=== PATIENT | male | born 1970 | race Caucasian/White ===

== ENCOUNTER 2016-08-16 10:26 | Observation (INO) | payer OTHER ==
[~2016-08-16] VITALS: Ht 165.1 cm; Wt 81.8 kg
[2016-08-16 11:19] VITALS: BP 143/89; PULSE 58
[2016-08-16] MEDS ORDERED: FLEXERIL 1010 MG/TAB PO (11:21)
[2016-08-16] MEDS ORDERED: DEPO-TESTOS200 MG/M1 IM (11:21)
[2016-08-16] MEDS ORDERED: PRINZIDE 25 MG-1 TAB PO (11:22)
[2016-08-16] MEDS ORDERED: LOPRESSOR100 MG PO (11:23)
[2016-08-16] MEDS ORDERED: NITROSTAT0.4 MG/TAB SL (11:24)
[2016-08-16] MEDS ORDERED: PERCOCET 325 MG1 TA2 PO (11:31)
[2016-08-16] MEDS ORDERED: BRINTELLIX10 PO (11:49)
[2016-08-16 12:40] LABS: HEMOGLOBIN 16.6 g/dl (13.5-18.0); MEAN CELL VOLUME 89 fl (80.0-100.0); MEAN CORPUSCULAR HEMOGLOBIN 28 pg (27.0-31.0); MEAN CORPUSCULAR HGB CONC 32 g/dl (33.0-37.0); MEAN PLATELET VOLUME 10.2 fl (7.4-10.4); PLATELET COUNT 270 K/mm3 (130-400); RED BLOOD COUNT 5.88 M/mm3 (4.20-5.60); REDCELL DISTRIBUTION WIDTH-CV 14.8 % (11.5-14.5); WHITE BLOOD COUNT 10.3 K/mm3 (4.8-10.8)
[2016-08-16 12:44] LABS: HEMATOCRIT 52.1 % (42.0-52.0)
[2016-08-16 12:45] LABS: PROTHROMBIN TIME 11.2 SECONDS (9.7-12.8)
[2016-08-16 12:47] LABS: PARTIAL THROMBOPLASTIN TIME 33.7 SECONDS (26.0-37.0)
[2016-08-16 12:55] LABS: CALCIUM 9.4 mg/dL (8.4-10.2); CREATININE, serum 0.91 mg/dL (0.66-1.25); POTASSIUM 4.2 mmol/L (3.4-5.0)
[2016-08-16 13:57] VITALS: BP 123/81; PULSE 54; TEMP 97.9
[2016-08-16 17:56] VITALS: BP 136/72; PULSE 52; TEMP 98.2
[2016-08-16 21:38] VITALS: BP 124/65; PULSE 53; TEMP 97.5
[2016-08-17] VITALS (537 sets, daily range): BP systolic 100–152; BP diastolic 64–95; PULSE 48–81; TEMP 97.2–98.5; O2SAT 85–100
[2016-08-18] VITALS (413 sets, daily range): BP systolic 100–148; BP diastolic 64–89; PULSE 50–65; TEMP 97.5; O2SAT 34–100
[2016-08-18 07:42] LABS: HEMOGLOBIN 17.2 g/dl (13.5-18.0); MEAN CELL VOLUME 88 fl (80.0-100.0); MEAN CORPUSCULAR HEMOGLOBIN 28 pg (27.0-31.0); MEAN CORPUSCULAR HGB CONC 32 g/dl (33.0-37.0); MEAN PLATELET VOLUME 9.8 fl (7.4-10.4); PLATELET COUNT 280 K/mm3 (130-400); RED BLOOD COUNT 6.05 M/mm3 (4.20-5.60); REDCELL DISTRIBUTION WIDTH-CV 14.8 % (11.5-14.5); WHITE BLOOD COUNT 14.3 K/mm3 (4.8-10.8)
[2016-08-18 07:47] LABS: CALCIUM 9.4 mg/dL (8.4-10.2); CREATININE, serum 0.98 mg/dL (0.66-1.25); POTASSIUM 4.4 mmol/L (3.4-5.0)
[2016-08-18 07:55] LABS: HEMATOCRIT 53.1 % (42.0-52.0)
== END 2016-08-18 13:25 | disposition home or self-care (01) ==
LOC: SURG 10:26 → SDCO 10:26 → SURG 10:27 → SDCO 10:27 → IMCU 08-17 12:26
PROVIDERS: Internal Medicine Interventional Cardiology
DX: I25.110 Atherosclerotic heart disease of native coronary artery with unstable angina pectoris (principal); F17.210 Nicotine dependence, cigarettes, uncomplicated
CPT/HCPCS: C1725; C1760; C1769; C1874; C1887; C9600; G0378; G0379; J0583; J2250; J3010; Q9967

== ENCOUNTER 2018-03-20 08:29 | Day surgery (SDC) | payer OTHER ==
[2018-03-20] VITALS (9 sets, daily range): BP systolic 136–184; BP diastolic 76–112; PULSE 55–76; TEMP 97.6
[~2018-03-20] VITALS: Ht 165.2 cm; Wt 79.0 kg
[~2018-03-20 08:29] MED LIST: ASPIRIN E.C. 8181 MG PO; BRINTELLIX10 PO; BRINTELLIX20 PO; COREG 6.256.25 MG/TA PO; CRESTOR40 MG PO; DEPAKOTE ER 50500 MG PO; DEPO-TESTOS200 MG/M1 IM; ELIQUIS 5MG PO; FLEXERIL 1010 MG/TAB PO; GEODON60 MG PO; LOPRESSOR100 MG PO; NICODERM C14 MG/PATC TD; NITROSTAT0.4 MG/TAB SL; PERCOCET 325 MG1 TA2 PO; PLAVIX 75MG TAB75 MG PO; PREDNISONE20 MG PO; PRINZIDE 25 MG-1 TAB PO; PROTONIX 40MG T40 MG PO; REMERON 15M15 MG/TA1 PO; TUSS PO
[2018-03-20 09:10] LABS: HEMATOCRIT 47.3 % (42.0-52.0); MEAN CELL VOLUME 90 fl (80.0-100.0); MEAN CORPUSCULAR HEMOGLOBIN 29 pg (27.0-31.0); MEAN CORPUSCULAR HGB CONC 32 g/dl (33.0-37.0); MEAN PLATELET VOLUME 9.6 fl (7.4-10.4); PLATELET COUNT 299 K/mm3 (130-400); RED BLOOD COUNT 5.26 M/mm3 (4.20-5.60); REDCELL DISTRIBUTION WIDTH-CV 15.8 % (11.5-14.5)
[2018-03-20] MEDS ORDERED: HCTZ 25MG TAB25 MG PO (09:18)
[2018-03-20] MEDS ORDERED: OXY IR5 MG PO (09:19)
[2018-03-20] MEDS ORDERED: XANAX 0.5MG0.5 MG PO (09:21)
[2018-03-20] MEDS ORDERED: CRESTOR40 MG PO (09:22)
[2018-03-20 09:23] LABS: CALCIUM 9.1 mg/dL (8.4-10.2); CREATININE, serum 0.7 mg/dL (0.66-1.25); POTASSIUM 4.2 mmol/L (3.4-5.0)
[2018-03-20 09:25] LABS: PROTHROMBIN TIME 11.2 SECONDS (9.7-12.8)
== END 2018-03-20 16:53 | disposition home or self-care (01) ==
LOC: COL.CAR 08:29
PROVIDERS: Internal Medicine Cardiovascular Disease
DX: I25.118 Atherosclerotic heart disease of native coronary artery with other forms of angina pectoris (principal); I10 Essential (primary) hypertension; E78.5 Hyperlipidemia, unspecified; F17.210 Nicotine dependence, cigarettes, uncomplicated; Z95.5 Presence of coronary angioplasty implant and graft; Z79.82 Long term (current) use of aspirin; Z79.01 Long term (current) use of anticoagulants; Z79.02 Long term (current) use of antithrombotics/antiplatelets; Z88.6 Allergy status to analgesic agent; Z86.718 Personal history of other venous thrombosis and embolism; Z82.3 Family history of stroke; Z82.49 Family history of ischemic heart disease and other diseases of the circulatory system
CPT/HCPCS: C1725; C1769; C1887; J0360; J1644; J2250; Q9967

== ENCOUNTER 2019-11-03 10:09 | Day surgery (SDC) | payer BC ==
[~2019-11-03] VITALS: Ht 165.4 cm; Wt 78.8 kg
[2019-11-03] VITALS (9 sets, daily range): BP systolic 128–152; BP diastolic 76–92; PULSE 52–61; TEMP 98
[~2019-11-03 10:09] MED LIST changes: +HCTZ 25MG TAB25 MG PO; -LOPRESSOR100 MG PO; +OXY IR5 MG PO; +TOPROL XL200 MG PO; +XANAX 0.5MG0.5 MG PO
[2019-11-03 11:23] LABS: HEMATOCRIT 50.2 % (42.0-52.0); HEMOGLOBIN 16.1 g/dl (13.5-18.0); MEAN CELL VOLUME 91 fl (80.0-100.0); MEAN CORPUSCULAR HEMOGLOBIN 29 pg (27.0-31.0); MEAN CORPUSCULAR HGB CONC 32 g/dl (33.0-37.0); MEAN PLATELET VOLUME 10.2 fl (7.4-10.4); PLATELET COUNT 270 K/mm3 (130-400); PROTHROMBIN TIME 11.5 SECONDS (9.7-12.8); RED BLOOD COUNT 5.53 M/mm3 (4.20-5.60); REDCELL DISTRIBUTION WIDTH-CV 15.8 % (11.5-14.5)
[2019-11-03 11:26] LABS: PARTIAL THROMBOPLASTIN TIME 31.8 SECONDS (26.0-37.0)
[2019-11-03] MEDS ORDERED: PERCOCET 325 MG1 TA2 PO (11:26)
[2019-11-03] MEDS ORDERED: ISOSORBIDE MON120 MG PO (11:27)
[2019-11-03] MEDS ORDERED: PRINIVIL20 MG PO (11:27)
[2019-11-03] MEDS ORDERED: BRINTELLIX10 PO (11:28)
[2019-11-03] MEDS ORDERED: PROAIR HFA0.09 MG/AC IH (11:29)
[2019-11-03] MEDS ORDERED: NICODERM C21 MG/PATC TD (11:29)
[2019-11-03] MEDS ORDERED: NORVASC 5MG5 MG/TAB PO (11:29)
[2019-11-03 11:30] LABS: CALCIUM 9.4 mg/dL (8.4-10.2); CREATININE, serum 0.79 (0.66-1.25); POTASSIUM 4.6 mmol/L (3.4-5.0)
--- NOTE | 2019-11-03 12:16 | NUR ---
SEE MERECHRIS FOR ALL MEDICATION ADMIN TIMES AND INTRA/POST SEDATION ASSESSMENT
--- NOTE | 2019-11-03 13:32 | NUR ---
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 Alert and oriented, c/o pain to back that is chronic. Report from Olga FREED. VSS. Right Tband noted CD&I, good pulses, and cap refill < 3secs. 14 cc air to band as reported by Olga FREED
--- NOTE | 2019-11-03 15:40 | NUR ---
right Tband completely deflated of 14 cc air, no bleeding and pressure dressing applied. INt discontinued intact.
--- NOTE | 2019-11-03 15:45 | NUR ---
Discharge instructions given. Transferred to private car by verito
== END 2019-11-03 16:01 | disposition home or self-care (01) ==
LOC: COL.CAR 10:09
PROVIDERS: Internal Medicine Cardiovascular Disease
DX: I25.118 Atherosclerotic heart disease of native coronary artery with other forms of angina pectoris (principal); I10 Essential (primary) hypertension; I77.1 Stricture of artery; Z95.5 Presence of coronary angioplasty implant and graft; F17.200 Nicotine dependence, unspecified, uncomplicated; Z79.899 Other long term (current) drug therapy; Z79.82 Long term (current) use of aspirin
CPT/HCPCS: J1644; J2250; J3010; Q9967

== ENCOUNTER → 2020-02-27 | Outpatient (CLI) | payer BC ==
[~2020-02-27] MED LIST changes: +ISOSORBIDE MON120 MG PO; +NICODERM C21 MG/PATC TD; +NORVASC 5MG5 MG/TAB PO; +PRINIVIL20 MG PO; +PROAIR HFA0.09 MG/AC IH
[2020-02-27 18:35] LABS: TROPONIN-I < 0.012 ng/mL (0.000-0.035)
== END ==
LOC: ZCOL.LAB 17:06
PROVIDERS: Nurse Practitioner
DX: I20.9 Angina pectoris, unspecified (principal)

== ENCOUNTER → 2020-07-07 | Outpatient (CLI) | payer BC | LOC: ZCOL.LAB 13:32 | DX: I10 Essential (primary) hypertension (principal) ==

== ENCOUNTER 2021-07-20 08:55 | Day surgery (SDC) | payer BC ==
[~2021-07-20] VITALS: Ht 165.5 cm; Wt 80.1 kg
[~2021-07-20 08:55] MED LIST changes: +IMDUR 60MG60 MG/TAB PO; -ISOSORBIDE MON120 MG PO
[2021-07-20 09:43] LABS: HEMATOCRIT 50.7 % (42.0-52.0); HEMOGLOBIN 16.6 g/dl (13.5-18.0); MEAN CELL VOLUME 89 fl (80.0-100.0); MEAN CORPUSCULAR HEMOGLOBIN 29 pg (27-31); MEAN CORPUSCULAR HGB CONC 33 g/dl (33.0-37.0); MEAN PLATELET VOLUME 9.9 fl (7.4-10.4); PLATELET COUNT 284 K/mm3 (130-400); RED BLOOD COUNT 5.72 M/mm3 (4.20-5.60); REDCELL DISTRIBUTION WIDTH-CV 15.5 % (11.5-14.5)
[2021-07-20 09:59] VITALS: BP 117/77; PULSE 79; TEMP 98.4
[2021-07-20 10:10] LABS: PROTHROMBIN TIME 11.6 SECONDS (9.7-12.8)
[2021-07-20 10:24] LABS: CALCIUM 8.9 mg/dL (8.4-10.2); CREATININE, serum 0.78 mg/dL (0.72-1.25); POTASSIUM 3.8 mmol/L (3.5-4.5)
[2021-07-20] MEDS ORDERED: LIPITOR 40MG TA40 MG PO (10:52)
[2021-07-20] MEDS ORDERED: BYSTOLIC5 MG PO (10:52)
--- NOTE | 2021-07-20 10:53 | NUR ---
Dr. Galvez was just at bs discussing poc. procedure cancelled.
[2021-07-20] MEDS ORDERED: RANEXA 500MG T500 MG PO (10:58)
--- NOTE | 2021-07-20 11:02 | NUR ---
Procedure cancelled by Dr Paz. in to talk with pt.Dicharge instructions given to pt.Pt verbalizes understanding.INT removed,catheter tip intact.
--- NOTE | 2021-07-20 11:07 | NUR ---
Pt escorted out via ambulatory.
== END 2021-07-20 11:07 ==
LOC: COL.CAR 08:55
PROVIDERS: Internal Medicine Cardiovascular Disease
DX: I25.119 Atherosclerotic heart disease of native coronary artery with unspecified angina pectoris (principal); R45.1 Restlessness and agitation; I10 Essential (primary) hypertension; R94.39 Abnormal result of other cardiovascular function study; F17.210 Nicotine dependence, cigarettes, uncomplicated; Z53.8 Procedure and treatment not carried out for other reasons; Z79.82 Long term (current) use of aspirin; Z95.1 Presence of aortocoronary bypass graft; Z79.899 Other long term (current) drug therapy; Z79.02 Long term (current) use of antithrombotics/antiplatelets

== ENCOUNTER 2022-01-16 13:49 | Observation (INO) | payer BC ==
[~2022-01-16] VITALS: Ht 165.1 cm; Wt 71.6 kg
[~2022-01-16 13:49] MED LIST changes: +BYSTOLIC5 MG PO; +LIPITOR 40MG TA40 MG PO; +RANEXA 500MG T500 MG PO
--- NOTE | 2022-01-16 15:30 | NUR ---
Patient to room 358 by POV. Patient dyspnec with extertion, 2L NC O2, reported chest pain and SOB. Patient A&Ox4. VSS. Nurse oriented the patient to location, room and call light. Patient independent. Call light within reach. Family at bedside.
[2022-01-16] MEDS ORDERED: COZAAR 50MG50 MG/TAB PO (15:37)
[2022-01-16] MEDS ORDERED: DAZIDOX10 MG PO (15:39)
[2022-01-16] MEDS ORDERED: REPATHA SU140 MG/1 M SQ (15:39)
[2022-01-16 15:49] VITALS: BP 154/98; PULSE 103; TEMP 98.3
[2022-01-16 15:51] VITALS: BP 154/98; PULSE 103; TEMP 98.3
--- NOTE | 2022-01-16 18:12 | NUR ---
Patient laying in bed, easily awakened with verbal command. A&Ox4. VSS. IV CDI, fluids infusing. Reports back pain, no pain medication requested. Call light within reach
[2022-01-16 20:27] VITALS: BP 158/83; PULSE 81; TEMP 98.9
[2022-01-17] VITALS (11 sets, daily range): BP systolic 129–166; BP diastolic 83–104; PULSE 84–128; TEMP 98–98.4
[2022-01-17 03:16] LABS: MEAN CELL VOLUME 81 fl (80.0-100.0); MEAN CORPUSCULAR HGB CONC 33 g/dl (33.0-37.0); MEAN PLATELET VOLUME 9.2 fl (7.4-10.4); PLATELET COUNT 303 K/mm3 (130-400); REDCELL DISTRIBUTION WIDTH-CV 17.8 % (11.5-14.5)
[2022-01-17 03:28] LABS: HEMATOCRIT 55.8 % (42.0-52.0); HEMOGLOBIN 18.5 g/dl (13.5-18.0); MEAN CORPUSCULAR HEMOGLOBIN 27 pg (27-31)
[2022-01-17 03:34] LABS: CALCIUM 9.2 mg/dL (8.4-10.2); CHOLESTEROL RISK RATIO 5.5; CREATININE, serum 0.93 mg/dL (0.72-1.25)
[2022-01-17 03:40] LABS: TROPONIN-I 0.019 ng/mL (0.00-0.033)
[2022-01-17 03:59] LABS: BAND 1 % (0-10); LYMPHOCYTE 22 % (20.0-51.0); NEUTROPHILS 70 % (42.0-75.2)
[2022-01-17 04:00] LABS: ANISOCYTOSIS 1+; PLATELET ESTIMATE NORMAL (NORMAL)
[2022-01-17 05:35] LABS: MUCOUS Present (NOT PRESENT); PH 5 (5-8); SQUAMOUS EPITHELIAL 0-2 /hpf (0-10); URINE APPEARANCE Hazy (CLEAR/HAZY); URINE BACTERIA Rare /hpf (NONE SEEN); URINE BILIRUBIN Negative (NEGATIVE); URINE BLOOD Negative (NEGATIVE); URINE COLOR Amber (YELLOW); URINE GLUCOSE Negative (NEGATIVE); URINE KETONE Trace (NEGATIVE); URINE LEUKOCYTE ESTERASE Negative (NEGATIVE); URINE NITRATE Negative (NEGATIVE); URINE PROTEIN(semi-quant) 1+ (NEGATIVE)
[2022-01-17 07:31] LABS: COLLECTION METHOD CLEAN CATCH
--- NOTE | 2022-01-17 10:05 | NUR ---
SONJA met with the patient to discuss discharge plan. The patient lives in [place] with his mother, Tatiana. He states that his mother is currently staying with his older sister in [place]. He reports independence with ADLs and does not have any DME. The patient's PCP is Dr. Too Haddad and he receives his medications from [facility]. He reports that he is having difficulties affording his meds right now. He states that he lost his job 2-3 weeks ago, due to all his cardiac issues. The [facility] has [employer] [facility] on file for him. The patient states that this insurance plan is no longer active and that he self pay. He would like to apply for Medicaid and disability. SW notified and consulted admissions and Mariela, financial counselor. The patient states that his daughter's mother, Keri Carranza (ph#[phone]), will be able to help him pay for his medications. The patient does not have a DPOA-HC and he was not interested in completing one at this time. He states that he is not and has four children over the age of 18: ANTWAN (ph#[phone]), Lluvia, Johnny, and Raymundo. His daughter is [id number] and she is with her mother, Keri. The patient plans to return home upon discharge. *Discharge plan: home*
--- NOTE | 2022-01-17 12:41 | NUR ---
See merge for all medication, assessment, intervention, and vital sign times.
--- NOTE | 2022-01-17 13:55 | NUR ---
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 Post cath vitals initiated. Dressing to right groin CDI. Patient very agitated with many demands stating "I will be walking out of here at 4pm regardless."Plan of care discussed for post heart cath monitoring. Verbalizes understanding. Call light in reach. Will monitor.
--- NOTE | 2022-01-17 14:05 | NUR ---
Contacted Dr Short for clarification on fluid/diet/heparin orders. New orders received and initiated.
[2022-01-17] MEDS ORDERED: BYSTOLIC5 MG PO (14:30)
[2022-01-17] MEDS ORDERED: RANEXA1000 MG PO (14:32)
--- NOTE | 2022-01-17 16:13 | NUR ---
1600 - Per provider, patient okay to be discharged by 1600 post cath procedure. Right groin site C/D/I and at this time with no bleeding or hematoma. Temperature and pulses throughout lower extremities WNL. Discharge paperwork provided and reviewed with patient for aftercare instructions and outpatient appointments for follow up. Patient escorted via wheelchair to the front door to his ride provided by family.
== END 2022-01-17 16:00 | disposition home or self-care (01) ==
LOC: MEDICAL 13:49
PROVIDERS: Physician Assistant; ADMIT Student in an Organized Health Care Education/Training Program
DX: I25.110 Atherosclerotic heart disease of native coronary artery with unstable angina pectoris (principal); I11.0 Hypertensive heart disease with heart failure; I50.9 Heart failure, unspecified; N17.9 Acute kidney failure, unspecified; R73.9 Hyperglycemia, unspecified; D72.819 Decreased white blood cell count, unspecified; R74.8 Abnormal levels of other serum enzymes; E78.5 Hyperlipidemia, unspecified; I73.9 Peripheral vascular disease, unspecified; G89.29 Other chronic pain; F32.A Depression, unspecified; F39 Unspecified mood [affective] disorder; Z79.02 Long term (current) use of antithrombotics/antiplatelets; F17.210 Nicotine dependence, cigarettes, uncomplicated; Z79.899 Other long term (current) drug therapy; Z79.82 Long term (current) use of aspirin; Z95.1 Presence of aortocoronary bypass graft; Z95.5 Presence of coronary angioplasty implant and graft; Z86.718 Personal history of other venous thrombosis and embolism
CPT/HCPCS: 99223-AI; C1760; C1769; C1887; C1894; G0378; J1644; J2250; J2270; J3010; J7030; Q9967

== ENCOUNTER → 2022-03-23 | Outpatient (CLI) | payer SELFPAY ==
[~2022-03-23] MED LIST changes: +COZAAR 50MG50 MG/TAB PO; +DAZIDOX10 MG PO; +RANEXA1000 MG PO; +REPATHA SU140 MG/1 M SQ
== END ==
LOC: COL.CARD 10:18
DX: R55 Syncope and collapse (principal)